=== PATIENT | female | born 2000 | race Caucasian/White ===

== ENCOUNTER 2019-07-06 11:12 | Outpatient (CLI) | payer OTHER ==
[2019-07-06] MEDS ORDERED: BUTORPHANOL 2 MG INJ IV ×2 (12:30)
[2019-07-06] MEDS ORDERED: AMPICILLIN 2 GM/NS (PMX) 100 ML IV (12:30)
[2019-07-06] MEDS ORDERED: LIDOCAINE 1% (MPF) 30 ML INJ INJ (12:30)
[2019-07-06] MEDS ORDERED: MISOPROSTOL 200 MCG TAB PR (12:30)
[2019-07-06] MEDS ORDERED: METHYLERGONOVINE 0.2 MG INJ IM (12:30)
[2019-07-06] MEDS ORDERED: CARBOPROST 250 MCG INJ IM (12:30)
[2019-07-06] MEDS ORDERED: OXYTOCIN 30 UNITS/LR 500 ML IV ×3 (12:30)
[2019-07-06 13:26] LABS: ADD MAN DIFF? NO
[2019-07-06 13:30] LABS: WHITE BLOOD COUNT 9.6 10^3/ul (4.8-10.8)
[2019-07-06 13:30] LABS: BASOPHILS % 0.3 % (0.0-2.0); EOSINOPHILS # 0.2 10^3/ul (0.0-0.5); EOSINOPHILS % 1.7 % (0.0-7.0); HEMATOCRIT 34.3 % (37.0-47.0); HEMOGLOBIN 10.8 g/dl (12.0-16.0); LYMPHOCYTES # 1.7 10^3/ul (0.8-2.9); LYMPHOCYTES % 17.6 % (18.0-55.0); MEAN CORPUSCULAR HEMOGLOBIN 24.8 pg (29.0-33.0); MEAN CORPUSCULAR HGB CONC 31.5 g/dl (32.0-37.0); MEAN CORPUSCULAR VOLUME 78.9 fl (72.0-104.0); MEAN PLATELET VOLUME 9.1 fl (7.4-10.4); MONOCYTE # 0.7 10^3/ul (0.3-0.9); MONOCYTES % 7.7 % (0.0-13.0); NEUTROPHIL # 6.8 10^3/ul (1.6-7.5); NEUTROPHILS % 70.9 % (30.0-74.0); PLATELET COUNT 254 10^3/UL (140-415); RED BLOOD COUNT 4.35 10^6/ul (4.20-5.40); RED CELL DISTRIBUTION WIDTH 13.8 % (11.5-14.5)
[2019-07-06 13:48] LABS: INR 0.96; PROTIME 12.9 Sec (11.9-14.9)
[2019-07-06 14:16] LABS: HEPATITIS B SURFACE ANTIGEN NEGATIVE (NEGATIVE)
[2019-07-06] MEDS: LACTATED RINGER'S 1,000 ML IV (15:17)
[2019-07-06 15:48] LABS: RAPID PLASMA REAGIN NONREACTIVE (NR)
[2019-07-06 16:21] LABS: RUPTURE FETAL MEMBRANES NEGATIVE (NEGATIVE)
[2019-07-06] MEDS ORDERED: AMPICILLIN 1 GM/NS (PMX) 50 ML IV (16:30)
== END 2019-07-06 17:35 | disposition home or self-care (01) ==
LOC: OBT 11:12 → L-D 11:12 → OBT 12:20 → L-D 12:20 → OBT 17:35
DX: O62.9 Abnormality of forces of labor, unspecified (principal); Z3A.39 39 weeks gestation of pregnancy
CPT/HCPCS: 76815; 76818; 84112; 85025; 85610; 85730; 86592; 86850; 86900; 86901; 87340